=== PATIENT | male | born 1975 | race Caucasian/White ===

== ENCOUNTER 2017-05-19 10:38 | Emergency (ER) | payer BC ==
[~2017-05-19] VITALS: Ht 180.3 cm; Wt 118.0 kg
[2017-05-19 10:39] VITALS: BP 162/102; PULSE 113; RESP 18; TEMP 98.6; O2SAT 91
[2017-05-19] MEDS ORDERED: SODIUM CHLOR 0.9% 1000 ML INJ 1,000 ML IV SCH (11:14)
[2017-05-19] MEDS ORDERED: SODIUM CHLORIDE 0.9% FLUSH 10 ML FLUSH IV FLUSH PRN (11:15)
[2017-05-19] MEDS ORDERED: SODIUM CHLORIDE 0.9% FLUSH 10 ML FLUSH IVF PRN (11:15)
[2017-05-19] MEDS ORDERED: ASPIRIN 81 MG CHEW TAB PO ONE (11:15)
[2017-05-19] MEDS ORDERED: SODIUM CHLORID 0.9% 500 ML INJ 500 ML IV ONE (11:15)
[2017-05-19 11:26] VITALS: O2SAT 95
--- NOTE | 2017-05-19 11:26 | PD ---
HPI Chief Complaint: Hypertension Time Seen by Provider: 11:07 Travel History International Travel<30 days: No Contact w/Intl Traveler<30days: No Traveled to known affect area: No History of Present Illness HPI 41-year-old left femur male presents to emergency Department with vague complaints of "just not feeling well". Patient reports a history of hypertension for which he hasn't taken his meds for the last 3 days. He states his doctor saw him several months ago and told him his liver functions were elevated, and wanted some other tests done which were not completed. He states last week he had some abdominal pain in both flanks radiating into the groin which is now passed. He states now his headache and vague chest congestion, but no significant specific fever, chills, nausea, vomiting, or diarrhea. He states no changes in his bowel or bladder. No dysuria. No changes in color. Decreased appetite. He does admit to binge drinking, but denies drinking every day. He denies any other drug use. No history of hepatitis in the past. Patient can't quantify his pain at this time. No known drug allergies. [facility] Social History Alcohol Use: Yes Tobacco Use: No Substance Use: No Allergies-Medications (Allergen,Severity, Reaction): Coded Allergies: No Known Allergies (Unverified , 05/19/17) Reported Meds & Prescriptions Reported Meds & Active Scripts Active Reported Amlodipine (Amlodipine Besylate) 10 Mg Tab 10 Mg PO DAILY Atorvastatin (Atorvastatin Calcium) 10 Mg Tab 10 Mg PO HS Lisinopril 10 Mg Tab 10 Mg PO BID Metformin (Metformin HCl) 500 Mg Tab 500 Mg PO BIDPC Review of Systems Except as stated in HPI: all other systems reviewed are Neg General / Constitutional: No: Fever, Chills Eyes: No: Visual changes HENT: Positive: Headaches, No: Vertigo, Lightheadedness, Sore Throat, Rhinitis , Rhinorrhea, Congestion, Nosebleed, Neck Stiffness, Neck Pain, Dental Difficulties, Earache Cardiovascular: Positive: Chest Pain or Discomfort (mild discomfort), Tachycardia, No: Dyspnea on exertion Respiratory: Positive: Shortness of Breath, No: Cough, Wheezing Gastrointestinal: Positive: Abdominal Pain (last week. She history of present illness), Loss of Appetite Genitourinary: No: Urgency, Frequency, Dysuria Musculoskeletal: No: Pain Skin: No Rash Neurologic: No: Weakness Psychiatric: No: Depression Endocrine: No: Polydipsia Hematologic/Lymphatic: No: Easy Bruising Physical Exam Narrative GENERAL: Patient appears anxious and in mild distress. SKIN: Warm and dry. Normal color. Normal turgor. HEAD: Atraumatic. Normocephalic. EYES: Pupils equal and round. No scleral icterus. No injection or drainage. ENT: No nasal bleeding or discharge. Mucous membranes pink and moist. Pharynx is clear. Airway is patent. NECK: Trachea midline. Supple nontender. CARDIOVASCULAR: Tachycardic rate and normal rhythm. No murmurs gallops or rubs. RESPIRATORY: No accessory muscle use. Clear to auscultation. Breath sounds equal bilaterally. GASTROINTESTINAL: Abdomen soft, non-tender, moderately distended. Hepatic margin show enlarged liver with a liver scan approximately 10 cm without tenderness. Splenic margins not palpable. No CVA tenderness. MUSCULOSKELETAL: Extremities without clubbing, cyanosis, or edema. No obvious deformities. NEUROLOGICAL: Awake and alert. No obvious cranial nerve deficits. Motor grossly within normal limits. Five out of 5 muscle strength in the arms and legs. Normal speech. PSYCHIATRIC: Appropriate mood and affect; insight and judgment normal. Data Data Last Documented VS Vital Signs Date Time Temp Pulse Resp B/P (MAP) Pulse Ox O2 Delivery O2 Flow Rate FiO2 05/19/17 14:00 93 19 169/95 (119) 97 Room Air 05/19/17 10:39 98.6 Orders Orders Electrocardiogram (05/19/17 11:08) Ckmb (Isoenzyme) Profile (05/19/17 11:08) Complete Blood Count With Diff (05/19/17 11:08) Comprehensive Metabolic Panel (05/19/17 11:08) Magnesium (Mg) (05/19/17 11:08) Prothrombin Time / Inr (Pt) (05/19/17 11:08) Act Partial Throm Time (Ptt) (05/19/17 11:08) Troponin I (05/19/17 11:08) Chest, Single Ap (05/19/17 11:08) Ecg Monitoring (05/19/17 11:08) Bilateral Bp Monitoring (05/19/17 11:08) Iv Access Insert/Monitor (05/19/17 11:08) Oximetry (05/19/17 11:08) Oxygen Administration (05/19/17 11:08) Aspirin Chew (Aspirin Chew) (05/19/17 11:15) Sodium Chloride 0.9% Flush (Ns Flush) (05/19/17 11:15) Sodium Chlorid 0.9% 500 Ml Inj (Ns 500 M (05/19/17 11:15) Lipase (05/19/17 11:14) Lactic Acid (05/19/17 11:14) Urinalysis - C+S If Indicated (05/19/17 11:14) Ct Abd/Pel W Iv Contrast(Rout) (05/19/17 11:14) NPO (05/19/17 11:14) Sodium Chlor 0.9% 1000 Ml Inj (Ns 1000 M (05/19/17 11:14) Sodium Chloride 0.9% Flush (Ns Flush) (05/19/17 11:15) Amlodipine (Norvasc) (05/19/17 11:30) Lisinopril (Prinivil) (05/19/17 11:30) CKMB (05/19/17 11:30) CKMB% (05/19/17 11:30) B-Type Natriuretic Peptide (05/19/17 13:08) Iohexol 350 Inj (Omnipaque 350 Inj) (05/19/17 13:52) Labs Laboratory Tests Test 05/19/17 11:30 05/19/17 13:17 White Blood Count 5.3 TH/MM3 Red Blood Count 4.76 MIL/MM3 Hemoglobin 14.8 GM/DL Hematocrit 43.0 % Mean Corpuscular Volume 90.3 FL Mean Corpuscular Hemoglobin 31.1 PG Mean Corpuscular Hemoglobin Concent 34.4 % Red Cell Distribution Width 13.8 % Platelet Count 361 TH/MM3 Mean Platelet Volume 8.1 FL Neutrophils (%) (Auto) 63.1 % Lymphocytes (%) (Auto) 31.4 % Monocytes (%) (Auto) 4.1 % Eosinophils (%) (Auto) 0.6 % Basophils (%) (Auto) 0.8 % Neutrophils # (Auto) 3.3 TH/MM3 Lymphocytes # (Auto) 1.7 TH/MM3 Monocytes # (Auto) 0.2 TH/MM3 Eosinophils # (Auto) 0.0 TH/MM3 Basophils # (Auto) 0.0 TH/MM3 CBC Comment DIFF FINAL Differential Comment Prothrombin Time 10.3 SEC Prothromb Time International Ratio 0.9 RATIO Activated Partial Thromboplast Time 27.2 SEC Blood Urea Nitrogen 9 MG/DL Creatinine 1.05 MG/DL Random Glucose 106 MG/DL Total Protein 7.7 GM/DL Albumin 3.8 GM/DL Calcium Level 8.8 MG/DL Magnesium Level 2.1 MG/DL Alkaline Phosphatase 94 U/L Aspartate Amino Transf (AST/SGOT) 20 U/L Alanine Aminotransferase (ALT/SGPT) 49 U/L Total Bilirubin 0.3 MG/DL Sodium Level 138 MEQ/L Potassium Level 3.7 MEQ/L Chloride Level 104 MEQ/L Carbon Dioxide Level 22.6 MEQ/L Anion Gap 11 MEQ/L Estimat Glomerular Filtration Rate 77 ML/MIN Lactic Acid Level 1.9 mmol/L Total Creatine Kinase 348 U/L Creatine Kinase MB 1.7 NG/ML Creatine Kinase MB % 0.5 % Troponin I LESS THAN 0.02 NG/ML B-Type Natriuretic Peptide LESS THAN 2 PG/ML Lipase 179 U/L Urine Color LIGHT-YELLOW Urine Turbidity CLEAR Urine pH 5.0 Urine Specific [place] 1.005 Urine Protein NEG mg/dL Urine Glucose (UA) NEG mg/dL Urine Ketones NEG mg/dL Urine Occult Blood NEG Urine Nitrite NEG Urine Bilirubin NEG Urine Urobilinogen LESS THAN 2.0 MG/DL Urine Leukocyte Esterase NEG Urine WBC 1 /hpf Microscopic Urinalysis Comment CULT NOT INDICATED MDM Medical Decision Making Medical Screen Exam Complete: Yes Emergency Medical Condition: Yes Differential Diagnosis Hypertension. Enlarged liver. Ascites. CHF. Cardiac syndrome. Renal failure. Diverticulitis. Hyperglycemia. Pancreatitis. Narrative Course Patient appears anxious but medically stable. Labs ordered including CBC, CMP, lipase, lactic acid, urinalysis, cardiac panel , PT PTT and INR. EKG is performed showing sinus tachycardia with nonspecific ST changes. Chest x-ray is ordered as well as CT of the abdomen with IV contrast. Patient is given 10 mg amlodipine by mouth as well as thousand mL was normal saline bolus. CBC is unremarkable. Chemistry shows normal electrolytes, BUN is 9, creatinine is 1.05, blood sugar is 106, lactic acid 1.9, lipase is 179. Coagulation studies are unremarkable. Chest x-ray shows mild cardiomegaly per radiologist. Abdominal CT scan shows: 1. No acute abnormality is seen. 2. Hepatic steatosis. 3. Small umbilical hernia containing mesenteric fat. Patient is felt medically stable at discharge is no significant findings are found on studies. Patient to follow with his primary care physician Patient should return to taking his medicines as previously prescribed. Patient can return with worsening symptoms if necessary. Diagnosis Primary Impression: Generalized weakness Referrals: Primary Care Physician Patient Instructions: General Instructions Additional Instructions: CBC is unremarkable. Chemistry shows normal electrolytes, BUN is 9, creatinine is 1.05, blood sugar is 106, lactic acid 1.9, lipase is 179. Coagulation studies are unremarkable. Chest x-ray shows mild cardiomegaly per radiologist. Abdominal CT scan shows: 1. No acute abnormality is seen. 2. Hepatic steatosis. 3. Small umbilical hernia containing mesenteric fat. Patient is felt medically stable at discharge is no significant findings are found on studies. Patient to follow with his primary care physician Patient should return to taking his medicines as previously prescribed. Patient can return with worsening symptoms if necessary. Med/Other Pt SpecificInfo: No Change to Meds Disposition: 01 DISCHARGE HOME Condition: Stable Cedrick Tovar May 19, 2017 11:26
[2017-05-19] MEDS ORDERED: LISINOPRIL 10 MG TAB PO ONE (11:30)
[2017-05-19 11:58] LABS: AUTOMATED NEUTROPHIL # 3.3 TH/MM3 (1.8-7.7); BASOPHIL % 0.8 % (0.0-2.0); EOSINOPHIL % 0.6 % (0.0-4.0); HEMO FLAGS DIFF FINAL; LYMPH % 31.4 % (9.0-44.0); LYMPHOCYTE # 1.7 TH/MM3 (1.0-4.8); MEAN CELL VOLUME 90.3 FL (80.0-100.0); MEAN CORPUSCULAR HEMOGLOBIN 31.1 PG (27.0-34.0); MEAN CORPUSCULAR HGB CONC 34.4 % (32.0-36.0); MONO % 4.1 % (0.0-8.0); NEUT % 63.1 % (16.0-70.0); PLATELET COUNT 361 TH/MM3 (150-450); RED BLOOD COUNT 4.76 MIL/MM3 (4.50-5.90); RED CELL DISTRIBUTION WIDTH 13.8 % (11.6-17.2); WHITE BLOOD COUNT 5.3 TH/MM3 (4.0-11.0)
[2017-05-19] MEDS ORDERED: ATOR10TA15 PO (12:00)
[2017-05-19] MEDS ORDERED: METF500T PO (12:00)
[2017-05-19] MEDS ORDERED: LISI10TA3 PO (12:00)
[2017-05-19] MEDS ORDERED: AMLO10TA2 PO (12:00)
[2017-05-19 12:07] LABS: APTT (PATIENT) 27.2 SEC (24.3-30.1); INTERNATIONAL NORMALIZED RATIO 0.9 RATIO; PROTHROMBIN TIME - PATIENT 10.3 SEC (9.8-11.6)
[2017-05-19 12:44] LABS: ANION GAP 11 MEQ/L (5-15); AST (GOT) 20 U/L (15-37); BICARBONATE 22.6 MEQ/L (21.0-32.0); BLOOD UREA NITROGEN 9 MG/DL (7-18); CHLORIDE 104 MEQ/L (98-107); GLOMERULAR FILTRATION RATE 77 ML/MIN (>89); MAGNESIUM 2.1 MG/DL (1.5-2.5); POTASSIUM 3.7 MEQ/L (3.5-5.1); SODIUM (NA) 138 MEQ/L (136-145)
[2017-05-19 12:51] LABS: ALKALINE PHOSPHATASE 94 U/L (45-117); ALT (GPT) 49 U/L (12-78); CREATINE KINASE 348 U/L (39-308); TOTAL BILIRUBIN ADULT 0.3 MG/DL (0.2-1.0)
[2017-05-19 13:03] LABS: CKMB 1.7 NG/ML (0.5-3.6)
--- NOTE | 2017-05-19 13:11 | RADRPT ---
EXAM DATE/TIME: 05/19/2017 11:59 [facility] COMPARISON: No previous studies available for comparison. INDICATIONS : Chest pain. MEDICAL HISTORY : Hypertension. Diabetes mellitus type II. SURGICAL HISTORY : None. ENCOUNTER: Initial ACUITY: 1 day PAIN SCORE: 5/10 LOCATION: Bilateral chest FINDINGS: The heart size appears enlarged. The lungs are clear. A significant effusion is not seen. CONCLUSION: Mild cardiomegaly. Harvey Carlton MD on May 19, 2017 at 13:09 Board Certified Radiologist. This report was verified electronically.
[2017-05-19 13:35] LABS: BLOOD, URINE NEG (NEG); COMMENT (UR) CULT NOT INDICATED; CULTURE IF INDICATED CULT NOT INDICATED; GLUCOSE,URINE NEG (NEG); KETONE, URINE NEG (NEG); NITRITE,URINE NEG (NEG); URINE COLOR LIGHT-YELLOW (YELLW/STRAW)
[2017-05-19] MEDS ORDERED: IOHEXOL 350 MG/ML 10 ML VIAL (for RAD DIAG) IVCONTRAST ONE (13:52)
[2017-05-19 14:00] VITALS: BP 169/95; PULSE 93; RESP 19; O2SAT 97
--- NOTE | 2017-05-19 14:05 | RADRPT ---
EXAM DATE/TIME: 05/19/2017 13:39 [facility] COMPARISON: No previous studies available for comparison. INDICATIONS : Short of breath, face feels flushed, noncompliant with BP meds. IV CONTRAST: 96 cc Omnipaque 350 (iohexol) IV ORAL CONTRAST: No oral contrast ingested. RADIATION DOSE: 16.40 CTDIvol (mGy) MEDICAL HISTORY : Hypertension. SURGICAL HISTORY : None. ENCOUNTER: Initial ACUITY: 3 days PAIN SCALE: 0/10 LOCATION: abdominal TECHNIQUE: Volumetric scanning of the abdomen and pelvis was performed. Using automated exposure control and ad justment of the mA and/or kV according to patient size, radiation dose was kept as low as reasonably achievable to obtain optimal diagnostic quality images. DICOM format image data is available electro nically for review and comparison. FINDINGS: LOWER LUNGS: The visualized lower lungs are clear. LIVER: There is diffuse decreased attenuation of the liver without lesion. There is no dilation of the bili [place] tree. No calcified gallstones. SPLEEN: Normal size without lesion. There are small splenules inferior to the spleen. PANCREAS: Within normal limits. KIDNEYS: Normal in size and shape. There is no mass, stone or hydronephrosis. ADRENAL GLANDS: Within normal limits. VASCULAR: There is no aortic aneurysm. BOWEL/MESENTERY: The stomach, small bowel, and colon demonstrate no acute abnormality. There is no free intraperitone al air or fluid. There is very slight minimal induration in the fat in the left lower quadrant anteri or but clearly separate from the distal descending colon. The colon itself appears unremarkable. ABDOMINAL WALL: There is an umbilical hernia containing mesenteric fat. Defect measures 1.6 cm. RETROPERITONEUM: There is no lymphadenopathy. BLADDER: No wall thickening or mass. REPRODUCTIVE: Within normal limits. INGUINAL: There is no lymphadenopathy or hernia. MUSCULOSKELETAL: There is mild degenerative change of the lower lumbar spine. There is a 1 cm focal areas of sclerosis in the posterior medial right ilium. This is nonspecific. There is a 1 cm lucent area with central c alcification the inferior left femoral neck. This has benign characteristics. CONCLUSION: 1. No acute abnormality is seen. 2. Hepatic steatosis. 3. Small umbilical hernia containing mesenteric fat. Harvey Carlton MD on May 19, 2017 at 13:54 Board Certified Radiologist. This report was verified electronically.
--- NOTE | 2017-05-20 10:46 | EKG ---
Date Performed: 05/19/2017 Time Performed: 11:16:16 PTAGE: 41 years EKG: SINUS TACHYCARDIA POSSIBLE LEFT ATRIAL ENLARGEMENT MODERATE INTRAVENTRICULAR CONDUCTION DEL AY ABNORMAL RHYTHM ECG NO PREVIOUS TRACING DOCTOR: Mehrdad Salmon Interpretating Date/Time 05/20/2017 10:40:22
== END 2017-05-19 15:15 | disposition home or self-care (01) ==
LOC: NEPE 10:38
DX: R53.1 Weakness (principal); R51 Headache; R07.9 Chest pain, unspecified; R10.9 Unspecified abdominal pain; K76.0 Fatty (change of) liver, not elsewhere classified; K42.9 Umbilical hernia without obstruction or gangrene; R00.0 Tachycardia, unspecified; Z79.899 Other long term (current) drug therapy; R94.31 Abnormal electrocardiogram [ECG] [EKG]; R06.02 Shortness of breath
CPT/HCPCS: 71010; 74177; 80053; 81001; 82550; 82552; 83605; 83690; 83735; 83880; 84484; 85025; 85610; 85730; 93005; 96360; 96361; 99285; J7030; Q9967